=== PATIENT | male | born 1995 | race Caucasian/White ===

== ENCOUNTER 2018-10-14 09:40 | Emergency (ER) | payer BC ==
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
[2018-10-14] MEDS ORDERED: Adacel (T-DAP) 0.5 ML SYRINGE ONE (11:02)
[2018-10-14] MEDS ORDERED: Lidocaine 1% w/Epinephrine 1:100K 20 ML VIAL ONE (11:33)
== END 2018-10-14 12:25 | disposition home or self-care (01) ==
LOC: ERS 09:40
DX: S81.812A Laceration without foreign body, left lower leg, initial encounter (principal); F17.200 Nicotine dependence, unspecified, uncomplicated; V29.9XXA Motorcycle rider (driver) (passenger) injured in unspecified traffic accident, initial encounter
CPT/HCPCS: 12002; 90471; 90715; J2001